=== PATIENT | female | born 1940 | race Caucasian/White ===

== ENCOUNTER 2016-07-26 14:16 | Emergency (ER) | payer MEDICAID ==
[2016-07-26 14:17] VITALS: BMI 35.3
[2016-07-26 14:49] VITALS: RESP 20; TEMP 98.1
--- NOTE | 2016-07-26 15:40 | C.PDOC ---
History Of Present Illness Pt c/o right wrist area pain and swelling. Denies injury, but has h/o Gout. Time Seen by Provider: 07/26/16 14:29 Chief Complaint (Nursing): Upper Extremity Problem/Injury History Per: Patient, Family Onset/Duration Of Symptoms: Days (2) Current Symptoms Are (Timing): Worse Quality: "Pain" Severity: Moderate Exacerbating Factor(s): Movement Additional History Per: Prior Records Past Medical History Reviewed: Historical Data, Nursing Documentation, Vital Signs Vital Signs: Last Vital Signs Temp 98.1 F 07/26/16 14:42 Pulse 69 07/26/16 16:55 Resp 20 07/26/16 16:55 BP 157/57 H 07/26/16 16:55 Pulse Ox 98 07/26/16 16:55 - Medical History PMH: Arthritis, Cardia Arrhythmia (A-fib), CHF, Diabetes, HTN, Hypercholesterolemia, Peripheral Edema, Chronic Kidney Disease Other PMH: Gout Surgical History: Coronary Stent (x4) - [facility] CORONAR ARTERIOGR-2 CATH (06/13/11) INJECT/INFUSE NEC (05/21/05) LEFT HEART CARDIAC CATH (06/13/11) LT HEART ANGIOCARDIOGRAM (06/13/11) NEGATVE-CONTR CARDIOGRAM (05/19/03) OTHER ENDOSCOPY OF SM INTEST (03/18/13) Family History: States: Unknown Family Hx - Social History Hx Tobacco Use: No Hx Alcohol Use: No Hx Substance Use: No - Immunization History Hx Tetanus Toxoid Vaccination: No Hx Influenza Vaccination: No Hx Pneumococcal Vaccination: Yes Review Of Systems Except As Marked, All Systems Reviewed And Found Negative. Constitutional: Negative for: Fever, Weakness Cardiovascular: Negative for: Chest Pain Respiratory: Negative for: Shortness of Breath Gastrointestinal: Negative for: Vomiting, Abdominal Pain Musculoskeletal: Positive for: Hand Pain (right). Negative for: Neck Pain, Shoulder Pain, Arm Pain Neurological: Negative for: Weakness, Numbness, Seizures, Altered Mental Status Physical Exam - Physical Exam Appears: Non-toxic, No Acute Distress Skin: Warm, Dry Head: Atraumatic, Normacephalic Eye(s): bilateral: PERRL, EOMI Neck: Normal ROM, Supple Respiratory: Normal Breath Sounds, No Accessory Muscle Use Gastrointestinal/Abdominal: Soft, No Tenderness Extremity: Normal ROM, Tenderness (right wrist area), Capillary Refill (wnl), Swelling (right wrist area) Pulses: Right Radial: Normal Neurological/Psych: Oriented x3, Normal Motor, Normal Sensation ED Course And Treatment O2 Sat by Pulse Oximetry: 97 Pulse Ox Interpretation: Normal - Other Rad Right wrist x-rays X-Ray: Interpreted by Me, Viewed By Me Interpretation: No acute fx or dislocation. Progress - Interventions Interventions:: Observation - Medications Administered Oral: Acetaminophen, Other (Colchicine) - Data Reviewed Data Reviewed: Diagnostic imaging, Old records - Patient Status Patient status: Mostly improved - Continuity of Care Discussed patient case with:: Patient, Family-HIPPA compliant, ED Nurse - Patient Plan Patient Plan: Discharge, F/U with PCP, Continue present meds Medical Decision Making Medical Decision Making: Could not give NSAIDs due to chronic renal impairment. Gave Solumedrol, but will not give Rx for steroids due to DM. Disposition Counseled Patient/Family Regarding: Studies Performed, Diagnosis, Need For Followup, Rx Given - Disposition Disposition: HOME/ ROUTINE Disposition Time: 17:06 Condition: IMPROVED Additional Instructions: Follow up with your doctor within 1-2 days for further evaluation and treatment. Return to the ER if you develop fever, weakness, numbness, severe pain, worsening of symptoms or if you have any other concerns. Prescriptions: Acetaminophen [Tylenol Extra Strength] 2 tab PO Q6 PRN #30 tablet PRN Reason: Pain, Moderate (4-7) Instructions: Gout (ED) Print Language: THAI - Clinical Impression Clinical Impression: Gout of right wrist
[2016-07-26 16:56] VITALS: BP 157/57; PULSE 69
[2016-07-26 17:08] VITALS: O2SAT 97
--- NOTE | 2016-07-26 20:13 | RAD ---
Right wrist four views History: Pain and swelling. Comparison: None available. Findings: Patchy osteopenia. Narrowing of the radiocarpal joint space. Negative ulnar variance. Prominent degenerative changes noted at the 1st MCP and interphalangeal joint space with joint space narrowing, subchondral sclerosis, and bony hypertrophy. Osteophytosis and or accessory ossicle formation at the heads of the 1st proximal phalanx and metacarpal bone. Additional osteophytosis at the base of the 1st distal phalanx. Overlying soft tissue swelling. Impression: Patchy osteopenia. Narrowing of the radiocarpal joint space. Negative ulnar variance. Prominent degenerative changes noted at the 1st MCP and interphalangeal joint space with joint space narrowing, subchondral sclerosis, and bony hypertrophy. Osteophytosis and or accessory ossicle formation at the heads of the 1st proximal phalanx and metacarpal bone. Additional osteophytosis at the base of the 1st distal phalanx. Overlying soft tissue swelling. If pain persists, consider MRI.
== END 2016-07-26 17:15 | disposition home or self-care (01) ==
LOC: C.ER 14:16
DX: M10.9 Gout, unspecified (principal)
CPT/HCPCS: 73110; 82948; 96372; 99285; J2930